=== PATIENT | female | born 1950 | race Caucasian/White ===

== ENCOUNTER 2017-10-19 19:03 | Emergency (ER) | payer OTHER ==
[~2017-10-19] VITALS: Ht 177.8 cm; Wt 86.2 kg
[2017-10-19] MEDS ORDERED: CELEXA40 MG PO (19:11)
[2017-10-19] MEDS ORDERED: ASPIRIN EC325 M1 PO (19:11)
[2017-10-19] MEDS ORDERED: METFORMIN HCL500 MG PO (19:11)
[2017-10-19] MEDS ORDERED: LISINOPRIL-HCT1 EAC2 PO (19:11)
[2017-10-19] MEDS ORDERED: BUSPIRONE HCL10 MG PO (19:12)
[2017-10-19 20:59] VITALS: BP 182/81
== END 2017-10-19 20:59 | disposition home or self-care (01) ==
LOC: ER 19:03
DX: S61.211A Laceration without foreign body of left index finger without damage to nail, initial encounter (principal); I10 Essential (primary) hypertension; F41.9 Anxiety disorder, unspecified; F17.210 Nicotine dependence, cigarettes, uncomplicated; W26.0XXA Contact with knife, initial encounter; Y93.89 Activity, other specified; Y92.89 Other specified places as the place of occurrence of the external cause; Y99.8 Other external cause status

== ENCOUNTER 2017-10-31 18:27 | Emergency (ER) | payer OTHER ==
[~2017-10-31] VITALS: Ht 180.3 cm; Wt 86.2 kg
[~2017-10-31 18:27] MED LIST: ASPIRIN EC325 M1 PO; BUSPIRONE HCL10 MG PO; CELEXA40 MG PO; LISINOPRIL-HCT1 EAC2 PO; METFORMIN HCL500 MG PO
[2017-10-31 19:15] LABS: ABSOLUTE NEUTROPHILS 6.8 thou/uL (1.4-8.2); BASOPHILS 1.2 % (0.0-2.0); EOSINOPHILS 0.4 % (0.0-3.0); HEMATOCRIT 39.8 % (37.0-47.0); HEMOGLOBIN 13.4 gm/dL (12.0-15.0); MCH 26.6 pg (26.0-34.0); MCHC 33.7 g/dL (28.0-37.0); MCV 78.8 fL (80.0-100.0); MONOCYTES 4.4 % (1.0-8.0); PLATELET COUNT 274 thou/uL (150-400); RBC 5.05 mil/uL (4.20-5.00); WBC 9.1 thou/uL (4.0-11.0)
[2017-10-31 19:30] LABS: CALCIUM 9.4 mg/dL (8.5-10.1); CREATININE 0.9 mg/dL (0.6-1.0); POTASSIUM 4.1 mmol/L (3.5-5.1)
[2017-10-31 19:37] LABS: ALBUMIN 3.4 g/dL (3.4-5.0); TOTAL BILIRUBIN 0.6 mg/dL (<0.1-1.0); TOTAL PROTEIN 7.6 g/dL (6.4-8.2)
[2017-10-31] MEDS ORDERED: TRAMADOL 50 MG50 MG PO (22:05)
[2017-10-31 22:40] VITALS: BP 140/66
== END 2017-10-31 22:42 | disposition home or self-care (01) ==
LOC: ER 18:27
PROVIDERS: Emergency Medicine
DX: R22.42 Localized swelling, mass and lump, left lower limb (principal); I10 Essential (primary) hypertension; F41.9 Anxiety disorder, unspecified; F17.210 Nicotine dependence, cigarettes, uncomplicated; Z88.8 Allergy status to other drugs, medicaments and biological substances

== ENCOUNTER 2017-11-04 12:14 | Inpatient (IN) | payer OTHER ==
[~2017-11-04] VITALS: Ht 180.3 cm; Wt 90.7 kg
--- NOTE | ~2017-11-04 | HC ---
[facility] [place] [address] CONSULTATION Name: ALBERT STATON Room #: 401-I ADM IN M.R.#: [id number] Admission: 11/04/17 Attend Phys: Tejinder Pettit MD Discharge: Date of : 46 Report #: [id number] THIS REPORT FOR: //name// CC: FAM unknown Tejinder Pettit DATE OF SERVICE: 11/05/2017 HISTORY OF PRESENT ILLNESS: This 67-year-old white female is seen in consultation in regard to likely metastatic malignancy. She has undergone a prophylactic pinning of her left femur to prevent pathologic fracture and part of the material from that surgery has been submitted to pathology for further testing, but is not reported at this time. She recently presented to the Emergency Room because of a laceration of her finger and an x-ray showed a left femur mass. Subsequent CT scanning has been performed, which unfortunately also shows evidence of a mass within the right kidney along with a bulky left lower lobe 6 cm mass with hilar adenopathy, paratracheal and subcarinal involvement. She is a heavy former smoker and is still smoking at this time. She denies any hemoptysis. She has not had weight loss. She is accompanied by her family. PAST MEDICAL HISTORY: Positive for medically managed hypertension along with diabetes. She had anxiety. ALLERGIES: NAPROSYN. MEDICATIONS: Are as listed on the MFR and have included metformin, buspirone, aspirin, and lisinopril and hydrochlorothiazide. SOCIAL HISTORY: Positive for tobacco use. She denies illicit drug use. FAMILY HISTORY: Not contributory. REVIEW OF SYSTEMS: As in the history of present illness. PHYSICAL EXAMINATION: GENERAL: Shows an elderly older than stated age patient. HEENT: Normocephalic. NECK: Supple. CHEST: Clear. CARDIOVASCULAR: Normal S1, S2. ABDOMEN: Failed revealing palpable masses. EXTREMITIES: Shows a recent surgery in the left thigh/femur. SKIN: Normal turgor. [facility] [address] [place] [address] CONSULTATION Name: ALBERT STATON [facility] ..#: [id number] Admission: 11/04/17 Attend Phys: Tejinder Pettit MD Discharge: Date of : 46 Report #: [id number] LYMPHATICS: No palpable supraclavicular adenopathy. NEUROLOGIC: No focal localizing signs. PSYCHIATRIC: Not agitated or confused. LABORATORY STUDIES: Have been reviewed and shows microcytosis, but no anemia. Chemistry was normal serum creatinine. 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 PLAN: We will await pathology for tissue diagnosis. I have discussed with the family that this may take several days before this results are back. Full and further recommendations will be forthcoming. Thanks again for asking us to be involved in her care and allowing me to see her in consultation. <ELECTRONICALLY SIGNED> By: Leilani Thurston MD 11/08/17 0918 [id number] Leilani Thurston MD /
--- NOTE | ~2017-11-04 | HC ---
[facility] [place] [address] CONSULTATION Name: ALBERT STATON Room #: 401-I [facility] IN M.R.#: [id number] Admission: 11/04/17 Attend Phys: Tejinder Pettit MD Discharge: 11/08/17 Date of : 46 Report #: [id number] THIS REPORT FOR: //name// CC: FAM unknown Tejinder Pettit DATE OF SERVICE: 11/08/2017 HISTORY OF PRESENT ILLNESS: The patient is a 67-year-old white female, chronic tobacco abuser who was admitted with a left femur mass. She was noted to have an impending pathologic fracture and underwent a prophylactic femoral nail on 11/05/2016. Biopsy has been positive for metastatic cancer to the left femur. CT chest does show a lung mass with mediastinal adenopathy. She is allowed weightbearing as tolerated. We are seeing her in rehabilitation medicine consultation. PAST MEDICAL HISTORY: Includes hypertension and borderline diabetes mellitus. MEDICATIONS: Please see the full medication listing. HABITS: Positive for tobacco 2 packs per day from many years. His decreased to only a few cigarettes per day at this point, and history of alcohol abuse. ALLERGIES: NAPROSYN. REVIEW OF SYSTEMS: No current complaints of chest pain, shortness of breath or abdominal discomfort. She was not on O2 premorbidly. Left hip discomfort appears to be improving. No other focal extremity pain complaints. PHYSICAL EXAMINATION: GENERAL: A 67-year-old white female in no obvious distress. VITAL SIGNS: Last recorded temperature 97.7, pulse 79, respirations 18, blood pressure 128/56. The patient is alert. HEAD, EARS, EYES, NOSE AND THROAT: Appeared to be benign. NEUROLOGIC: Cranial nerves are grossly intact. Facies are symmetric. She has nasal prong O2 in place. EXTREMITIES: Functional range of motion of both upper extremities with strength grade 4-/5. DTRs are trace to 1. Lower extremities, left hip is dressed. There is no focal calf swelling. She can dorsiflex the left ankle. Strength is probably a grade 3+ to 4-/5 somewhat limited by discomfort. Examination of the right lower extremity reveals functional range of motion with strength grade 4/5. DTRs are trace to 1. Functionally, she is contact guard with sit to stand and ambulated 150 feet contact guard with a front-wheeled walker. ASSESSMENT: A 67-year-old white female with the following problem list: 1. Impending pathologic fracture, left femur, [place] [address] CONSULTATION Name: ALBERT STATON Room #: [facility]#: [id number] Admission: 11/04/17 Attend Phys: Tejinder Pettit MD Discharge: 11/08/17 Date of : 46 Report #: [id number] femoral nail, 130. 2. 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 3. Lung mass with mediastinal adenopathy noted on CT of the chest. 4. History of tobacco abuse. 5. Diabetes mellitus, which is noted to be borderline. 6. Hypertension. 7. Tobacco abuse. PLAN: She is doing better in her therapies, was able to sit to stand with contact guard assistance and did ambulate up to 150 feet contact guard with a front-wheeled walker. Physical therapy thought she may be return directly home with home health care, will likely be too high level for an acute 5-North inpatient rehabilitation stay and beds are currently full on the rehab [facility]. I agree, will likely be able to return directly back home versus needing assure rehabilitation therapy stay. Thank you for asking us to assist in this patient's care. <ELECTRONICALLY SIGNED> By: Darci Ojeda MD 11/11/17 1226 1215 05 Darci Ojeda MD /PMT
--- NOTE | ~2017-11-04 | O ---
[facility] [place] [address] OPERATIVE REPORT Name: ALBERT STATON Room #: 401-I ADM IN M.R.#: [id number] Admission: 11/04/17 Attend Phys: Tejinder Pettit MD Discharge: Date of : 46 Report #: [id number] THIS REPORT FOR: //name// CC: FAM unknown Tejinder Pettit DATE OF SERVICE: 11/05/2017 PREOPERATIVE DIAGNOSIS: Metastatic cancer to the left mid shaft femur with impending pathologic fracture. POSTOPERATIVE DIAGNOSIS: Metastatic cancer to the left mid shaft femur with impending pathologic fracture. PROCEDURE: Prophylactic nail fixation, left femoral shaft for impending pathologic fracture. SURGEON: Phu Coto MD. ANESTHESIA: General. IMPLANTS: Gutiérrez and Nephew size 11.5 x 40 trochanteric antegrade nail with a size 90/85 lag screw and compression screw and a size 45 mm and 50 mm distal locking screws. ESTIMATED BLOOD LOSS: 100 mL. COMPLICATIONS: None. SPECIMENS: Reamings were sent for permanent pathology. CONDITION UPON LEAVING THE OPERATING ROOM: Stable. INDICATIONS FOR PROCEDURE: The patient is a 67-year-old female who presented to my office yesterday with significant history of left thigh pain with weightbearing. She had x-ray examination as well as CT scan shown to have a metastatic tumor in her mid/distal third femur. She was admitted to the hospital for workup of this. Her CT scan of her chest, abdomen and pelvis showed a right renal mass as well as a left lung mass. MRI scan of the left femur showed her to have extensive metastatic tumor into the mid and distal third of the femur. Given that this was likely metastatic disease to the femur and she was having significant pain even with weightbearing activities, based on the size and location of the tumor, it was decided to proceed with prophylactic nail fixation of the left femur. DESCRIPTION OF PROCEDURE: Risks, benefits, alternatives, and complications were [facility] [address] [place] [address] OPERATIVE REPORT Name: ALBERT STATON Room #: 401-I [facility] IN [facility]#: [id number] Admission: 11/04/17 Attend Phys: Tejinder Pettit MD Discharge: Date of : 46 Report #: [id number] discussed in detail with the patient including but not limited to risk of anesthesia, risk of damage to nerves, arteries, blood vessels; risk for infection, bleeding, risk for continued thigh pain and need for reoperation. Informed consent was obtained from the patient. The left thigh was appropriately marked in the preoperative holding area. A 2 g IV Ancef given for preoperative antibiotics. She was brought to the operating room and general anesthesia was induced without complication. She was then transferred to the [place] table. Left lower extremity was placed in slight traction. Right lower extremity was scissored. Fluoroscopic imaging was brought in to verify that adequate images could be obtained throughout the case. Timeout was performed properly identifying the patient and procedure as well as the instrumentation. The left thigh was prepped and draped in normal sterile fashion. A 2 cm incision proximal to the tip of the greater trochanter was made through the skin and the fascia and threaded tip guidewire was placed on the tip of the greater trochanter and taken down to the level of the lesser trochanter under AP and lateral imaging. Intra-portal reamer for the trochanteric antegrade nail was then made and a ball tip guidewire was placed down into the femoral shaft to the level of the superior patella. This was measured and found to be a size 40 cm in length. The femoral shaft was then sequentially reamed up to a size 14 at which point there was excellent chatter of the diaphyseal bone. Reamings from the bone were sent for permanent pathology in order to obtain hopefully a histological diagnosis of her metastatic cancer. A size 11.5 x 40 nail was then placed down the femoral shaft and seated. The proximal locking screws were placed and they were a size 90 lag screw and a size 85 compression screw. After this, two distal locking screws were placed; they were a size 45 and 50 mm in length, using perfect the [place] technique. After this, final fluoroscopic images were obtained to verify adequate placement of the nail as was the case. The wound was thoroughly irrigated with normal saline and closed with 2-0 Vicryl and skin tamara. Soft dressing of Adaptic, 4 x 4, Medipore tape were applied. The patient tolerated this procedure well and went to the recovery room under the care of Anesthesia postoperatively. <ELECTRONICALLY SIGNED> By: Phu Coto MD 11/07/17 0843 1126 1221 Phu Coto MD /nt
--- NOTE | ~2017-11-04 | S ---
[facility] [address] [place] [address] SURGICAL PATH RPT PROCEDURE Name: CHIKIS LIN Room #: 401-I ADM IN M.R.#: [id number] Admission: 11/04/17 Date of : 46 Discharge: Report #: [id number] Path Case #: [id number] PATHOLOGY REPORT COLLECTION DATE: 11/05/2017 RECEIVED DATE: 11/05/2017 SUBMITTING PHYS: Dr. Phu Coto OTHER PHYS: Dr. Tejinder Thurston M.D. ADDENDUM REPORT (Order Date: 11/08/2017 13:33) ADDENDUM COMMENT: In an attempt to further subclassify the tumor cells, additional properly controlled immunohistochemical stains are performed. Block A2 CD56 - tumor cells non-reactive Synaptophysin - tumor cells non-reactive TTF-1 - tumor cell nuclei non-reactive CD45 - tumor cells non-reactive P63 - tumor cells non-reactive CK7 - tumor cells non-reactive CK20 - tumor cells non-reactive S100 - tumor cells non-reactive MART-1 - tumor cells non-reactive CD10 - tumor cells diffusely and strongly reactive Vimentin - tumor cells focally reactive TAQUERIA - tumor cells focally reactive The tumor cells are variably sized with high nuclear/cytoplasmic ratios, scattered mitotic figures and apoptosis. Due to the decalcification process, the reliability of the stains is unknown. Further subclassification is difficult to determine. The final diagnosis remains unchanged. (CLW:mai; 11/08/2017) Professional services performed by [facility] at [facility] [address], [place] [address] Technical services performed by [facility] at [address] [place] [address], [address] [place] [address]. ELECTRONICALLY SIGNED BY: Angelica Maldonado M.D. DATE/TIME:11/08/2017 14:48 SPECIMEN(S) RECEIVED: A.Left femoral bone reamings [facility] [address] [place] [address] SURGICAL PATH RPT PROCEDURE Name: CHIKIS LIN Room #: 401-I ADM IN [facility]#: [id number] Admission: 11/04/17 Date of : 46 Discharge: Report #: [id number] Path Case #: [id number] * * * * * * * * * * * * FINAL DIAGNOSIS: "Left femoral bone reamings," reamings: - DECALCIFIED BONE AND BONE MARROW WITH METASTATIC CARCINOMA. (SEE COMMENT) - Abundant fresh hemorrhage consistent with pathologic fracture. COMMENT: Sections show decalcified bony fragments with bone marrow showing trilineage hematopoiesis. Areas of fibrosis and metastatic tumor cells are identified. Abundant fresh hemorrhage is also present. A properly controlled immunohistochemical stain is performed. AE1/AE3 (A1): Tumor cells reactive Additional immunohistochemical stains for further subclassification are pending and will be reported as an addendum. [employer] slides are co-reviewed with Dr. Kasandra Sampson. The case is discussed with Dr. Leilani Thurston on 11/07/17 at approximately 12:15 PM. (CLW:mgr; 11/07/2017) PATHOLOGIST: Angelica Maldonado M.D. REPORT ELECTRONICALLY SIGNED BY: Angelica Maldonado M.D. DATE/TIME: 11/07/2017 15:35 * * * * * * * * * * * * GROSS PATHOLOGY: The specimen is received in formalin, labeled "Chikis Lin, left femoral bone reamings". Received is a collection of taylor-brown bone reamings admixed with blood coagulum and pale taylor soft tissue measuring 3.8 x 3.7 x 1.7 cm in aggregate dimensions. The specimen is filtered and submitted entirely in cassettes A1 through A4, following decalcification. (DAC; 11/06/2017) CLINICAL HISTORY: Metastatic tumor INITIAL CPT CODE(S): A; 58690, 22648, 45497, 88218, 29236, 92936, 11702, 33112, 72044, 46066, 10562, 40056, 83478, 88367, 49879 Professional services performed by [facility] at [address], [place] [address] [place] [address] SURGICAL PATH RPT PROCEDURE Name: CHIKIS LIN Room #: 401-I ADM IN M.R.#: [id number] Admission: 11/04/17 Date of : 46 Discharge: Report #: [id number] Path Case #: [id number] Technical services performed by [facility] at [address] [place] [address]., [address], [place] [address]. [facility] [address] [place] [address] PHONE: [phone] DIRECTOR: Matt Winston M.D. * * * END OF REPORT * * *
[~2017-11-04 12:14] MED LIST changes: +TRAMADOL 50 MG50 MG PO
[2017-11-04 12:35] VITALS: BP 143/61
[2017-11-04 13:27] LABS: HEMATOCRIT 40.6 % (37.0-47.0); HEMOGLOBIN 13.1 gm/dL (12.0-15.0); MCH 25.5 pg (26.0-34.0); MCHC 32.3 g/dL (28.0-37.0); MCV 79.1 fL (80.0-100.0); RBC 5.14 mil/uL (4.20-5.00); RDW 16.4 % (10.5-14.5); WBC 7.5 thou/uL (4.0-11.0)
[2017-11-04 13:36] LABS: CALCIUM 9.5 mg/dL (8.5-10.1); CREATININE 0.9 mg/dL (0.6-1.0); POTASSIUM 4.3 mmol/L (3.5-5.1)
[2017-11-04 15:27] VITALS: BP 143/61
[2017-11-04 21:25] VITALS: BP 135/60
[2017-11-05] VITALS (9 sets, daily range): BP systolic 105–136; BP diastolic 51–84
[2017-11-06] VITALS (8 sets, daily range): BP systolic 99–135; BP diastolic 34–70
[2017-11-06 05:00] LABS: HEMATOCRIT 36.8 % (37.0-47.0); HEMOGLOBIN 12.1 gm/dL (12.0-15.0); MCH 25.9 pg (26.0-34.0); MCHC 32.8 g/dL (28.0-37.0); MCV 79.1 fL (80.0-100.0); RBC 4.66 mil/uL (4.20-5.00); RDW 15.5 % (10.5-14.5); WBC 7.9 thou/uL (4.0-11.0)
[2017-11-06 05:18] LABS: CALCIUM 8.7 mg/dL (8.5-10.1); CREATININE 0.8 mg/dL (0.6-1.0); POTASSIUM 3.8 mmol/L (3.5-5.1)
[2017-11-06 08:09] LABS: GLOBULIN TOTAL 3.5 g/dL (2.2-3.9); M-SPIKE Not Observed g/dL (Not Observed)
[2017-11-07 03:56] VITALS: BP 109/34
[2017-11-07 05:46] LABS: HEMATOCRIT 34.2 % (37.0-47.0); HEMOGLOBIN 11.3 gm/dL (12.0-15.0); MCH 25.8 pg (26.0-34.0); MCHC 32.9 g/dL (28.0-37.0); MCV 78.5 fL (80.0-100.0); RBC 4.36 mil/uL (4.20-5.00); RDW 16.3 % (10.5-14.5); WBC 6.8 thou/uL (4.0-11.0)
[2017-11-07 05:55] LABS: CALCIUM 8.9 mg/dL (8.5-10.1); CREATININE 0.8 mg/dL (0.6-1.0); POTASSIUM 3.7 mmol/L (3.5-5.1)
[2017-11-07 08:00] VITALS: BP 124/60
[2017-11-07 08:38] VITALS: BP 123/57
[2017-11-07 16:29] VITALS: BP 124/60
[2017-11-07 20:00] VITALS: BP 125/43
[2017-11-08 00:35] LABS: URINE BILIRUBIN NEGATIVE (Negative); URINE BLOOD NEGATIVE (Negative); URINE CLARITY CLEAR; URINE COLOR YELLOW; URINE GLUCOSE-RANDOM* NEGATIVE (Negative); URINE KETONES NEGATIVE (Negative); URINE LEUKOCYTES-REFLEX NEGATIVE (Negative); URINE NITRITE-REFLEX NEGATIVE (Negative); URINE PROTEIN (DIPSTICK) NEGATIVE (Negative); URINE SPECIFIC GRAVITY >= 1.030 (1.005-1.035)
[2017-11-08 03:50] LABS: HEMATOCRIT 33.5 % (37.0-47.0); MCH 26.1 pg (26.0-34.0); MCV 79.2 fL (80.0-100.0); RBC 4.23 mil/uL (4.20-5.00); RDW 16.2 % (10.5-14.5); WBC 7.1 thou/uL (4.0-11.0)
[2017-11-08 04:00] VITALS: BP 143/64
[2017-11-08 04:06] LABS: CREATININE 0.8 mg/dL (0.6-1.0); POTASSIUM 4.3 mmol/L (3.5-5.1)
[2017-11-08 07:47] VITALS: BP 128/56
[2017-11-08] MEDS ORDERED: PERCOCET PO (13:11)
[2017-11-08 13:30] VITALS: BP 128/56
== END 2017-11-08 15:20 | disposition home health service (06) | DRG 481 ==
LOC: 4N 12:14 → ENTRNSPT 11-06 14:33 → EDTRNSPTSTS 11-06 14:35 → DELTRNSPT 11-07 07:00 → ENTRNSPT 11-08 15:09 → EDTRNSPTSTS 11-08 15:12 → 4N 11-08 15:20
PROVIDERS: Hospitalist; Internal Medicine; Nurse Practitioner Family; Orthopaedic Surgery
PROC: 0QH906Z Insertion of Intramedullary Internal Fixation Device into Left Femoral Shaft, Open Approach (ICD-10-PCS; principal; 2017-11-05)
DX: C79.51 Secondary malignant neoplasm of bone (principal); M84.552A Pathological fracture in neoplastic disease, left femur, initial encounter for fracture; I10 Essential (primary) hypertension; E11.9 Type 2 diabetes mellitus without complications; C80.1 Malignant (primary) neoplasm, unspecified; F41.9 Anxiety disorder, unspecified; R59.0 Localized enlarged lymph nodes; F17.210 Nicotine dependence, cigarettes, uncomplicated; F32.9 Major depressive disorder, single episode, unspecified; Z79.82 Long term (current) use of aspirin; Z88.8 Allergy status to other drugs, medicaments and biological substances
CPT/HCPCS: 10790; 50010; 50101; 50386; 51412; 51538; 52304; 55445; 56524; 57092; 62110; 62900; 70005